=== PATIENT | male | born 1945 ===

== ENCOUNTER 2020-07-31 11:35 | Day surgery (SDC) | payer MEDICARE, BC ==
[~2020-07-31] VITALS: Ht 185.4 cm; Wt 91.4 kg
[~2020-07-31 11:35] MED LIST: LEVSOD137
== END 2020-07-31 13:26 | disposition home or self-care (01) ==
LOC: ORSCSDS 11:35
PROVIDERS: Internal Medicine Gastroenterology
PROC: 0DBK8ZX Excision of Ascending Colon, Via Natural or Artificial Opening Endoscopic, Diagnostic (ICD-10-PCS; principal; 2020-07-31 12:45)
DX: Z12.11 Encounter for screening for malignant neoplasm of colon (principal); D12.2 Benign neoplasm of ascending colon; K57.30 Diverticulosis of large intestine without perforation or abscess without bleeding; K64.8 Other hemorrhoids; I48.91 Unspecified atrial fibrillation; Z95.0 Presence of cardiac pacemaker; E03.9 Hypothyroidism, unspecified; Z87.891 Personal history of nicotine dependence; Z79.899 Other long term (current) drug therapy
CPT/HCPCS: 88305; J2704; J7120

== ENCOUNTER → 2024-05-11 | Outpatient (CLI) | payer MEDICARE, BC | END | disposition home or self-care (01) | LOC: LAB 15:52 → LAB SHORT 15:52 | DX: N39.0 Urinary tract infection, site not specified (principal) | CPT/HCPCS: 87077; 87086; 87186 ==

== ENCOUNTER 2025-06-18 10:39 | Day surgery (SDC) | payer MEDICARE, BC ==
[~2025-06-18] VITALS: Ht 185.4 cm; Wt 92.4 kg
[~2025-06-18 10:39] MED LIST changes: +CeFAZolin Sodium 2,000 MG VIAL ONE; +Lidocaine HCl 2% 10 ML SDA ONE
[2025-06-18] MEDS ORDERED: ALBUTEROL SULFATE HF (11:08)
[2025-06-18] MEDS ORDERED: ENTRESTO 49 MG1 EAC7 (11:08)
[2025-06-18] MEDS ORDERED: TORSE20 (11:13)
[2025-06-18] MEDS ORDERED: FentaNYL Citrate 50 MCG/ML 2 ML Injection ONE (12:22)
[2025-06-18] MEDS ORDERED: HYDROcodone 5-APAP 325 TAB ONE (13:41)
[2025-06-18 13:50] VITALS: BP 126/89
--- NOTE | 2025-06-18 14:12 | NUR ---
06/18/25 1412 Rodri Morales SPOKE WITH ANESTHESIA DR ARRIETA. REPORTED TO HIM PT RECEIVED ADDITIONAL FLUIDS IV. PT'S LUNG SOUNDS CLEAR, VSS, O2 SATS 100% ON RA. DR ARRIETA REPORTS FLUIDS PT RECEIVED VIA IV IS OK. INTRUCTED PT TO REDUCE FLUID INTAKE VIA PO UNTIL HE STARTS URINATING PER DR ARRIETA. PT REPORTS UNDERSTANDING. PT REPORTS MANAGEABLE LEVEL OF PAIN, DENIES NAUSEA, AND IS AGREEABLE TO D/C HOME WITH SPOUSE IZABEL.
== END 2025-06-18 14:13 | disposition home or self-care (01) ==
LOC: ORSCSDS 10:39
PROVIDERS: Orthopaedic Surgery
PROC: 0JNJ0ZZ Release Right Hand Subcutaneous Tissue and Fascia, Open Approach (ICD-10-PCS; principal; 2025-06-18 12:00)
DX: M72.0 Palmar fascial fibromatosis [Dupuytren] (principal); M79.641 Pain in right hand; I10 Essential (primary) hypertension; I48.0 Paroxysmal atrial fibrillation; Z95.0 Presence of cardiac pacemaker; Z79.899 Other long term (current) drug therapy
CPT/HCPCS: A9270; J0690; J2003; J2704; J3010; J7120